=== PATIENT | male | born 1995 | race African-American/Black ===

== ENCOUNTER 2021-05-17 19:07 | Emergency (ER) | payer BC ==
[~2021-05-17] VITALS: Ht 188 cm; Wt 180.0 kg
[2021-05-17] MEDS ORDERED: ZIPRASIDONE MESYLATE 20MG/VIAL IM ONE (21:15)
[2021-05-17 23:20] LABS: BASOPHILS % 0.4 % (0.0-2.0); CHLORIDE 105 mEq/L (98-107); EOSINOPHILS % 0.9 % (0.0-5.0); HEMATOCRIT. 48.7 % (42.0-52.0); HEMOGLOBIN. 16.6 g/dL (14.0-18.0); LYMPHOCYTES % 29.9 % (20.0-50.0); MEAN CORPUSCULAR VOLUME 88.5 fL (80.0-94.0); MEAN PLATELET VOLUME 8.5 fl (7.4-10.4); MONOCYTES % 6.2 % (2.0-8.0); NEUTROPHILS % 62.6 % (40.0-76.0); PLATELET 222 x1000/uL (130-400); RED BLOOD CELL COUNT 5.51 mill/uL (4.7-6.1); RED CELL DISTRIBUTION WIDTH 13.4 % (11.6-14.6)
[2021-05-17 23:26] LABS: ETHANOL BLOOD < 10 mg/dL
[2021-05-18 00:03] LABS: CLARITY URINE CLEAR (CLEAR); COLOR URINE YELLOW (YELLOW); KETONES URINE NEGATIVE (NEGATIVE); LEUKOCYTE ESTERASE URINE NEGATIVE (NEGATIVE); NITRITE URINE NEGATIVE (NEGATIVE); OCCULT BLOOD URINE NEGATIVE (NEGATIVE); PROTEIN URINE NEGATIVE (NEGATIVE); SPECIFIC GRAVITY URINE 1.012 (1.005-1.030)
[2021-05-18 00:16] LABS: *BARBITURATES SCREEN URINE NEGATIVE (NEGATIVE); *BENZODIAZEPINES SCREEN URINE NEGATIVE (NEGATIVE); *COCAINE SCREEN URINE NEGATIVE (NEGATIVE); CANNABINOID URINE SCREEN NEGATIVE (NEGATIVE); PHENCYCLIDINE URINE SCREEN NEGATIVE (NEGATIVE)
[2021-05-18 00:17] LABS: *AMPHETAMINES SCREEN URINE NEGATIVE (NEGATIVE); METHADONE URINE SCREEN NEGATIVE (NEGATIVE); OPIATES URINE SCREEN NEGATIVE (NEGATIVE)
[2021-05-18] MEDS: DIVALPROEX SODIUM 500MG DR TABLET PO SCH (21:22)
[2021-05-18] MEDS ORDERED: HALOPERIDOL 5MG TABLET PO ONE (21:30)
[2021-05-18] MEDS: ZIPRASIDONE HCL 20MG CAPSULE PO SCH (21:30)
[2021-05-19] MEDS: DIVALPROEX SODIUM 500MG DR TABLET PO SCH ×2 (08:59→21:00)
[2021-05-19] MEDS: ZIPRASIDONE HCL 20MG CAPSULE PO SCH ×2 (09:00→21:00)
[2021-05-19 16:13] VITALS: BP 132/81
== END 2021-05-20 05:55 | disposition left against medical advice (07) ==
LOC: ER 19:07
DX: F29 Unspecified psychosis not due to a substance or known physiological condition (principal); Z20.822 Contact with and (suspected) exposure to COVID-19; Z86.59 Personal history of other mental and behavioral disorders
CPT/HCPCS: 36415; 80053; 80305; 80320; 81003; 85025; 96372; 99285; C9803; J1630; J3486; U0003; U0005; G0480

== ENCOUNTER 2023-12-14 23:25 | Emergency (ER) | payer BC ==
[~2023-12-14] VITALS: Ht 182.9 cm; Wt 150.0 kg
[2023-12-14 23:33] VITALS: BP 186/98; PULSE 90; RESP 18; TEMP 98.4; O2SAT 100
== END 2023-12-14 23:37 ==
LOC: ER 23:25
DX: R45.850 Homicidal ideations (principal); R45.1 Restlessness and agitation; F31.9 Bipolar disorder, unspecified
CPT/HCPCS: 99283